=== PATIENT | male | born 1965 | race Caucasian/White ===

== ENCOUNTER 2021-01-07 12:30 | Emergency (ER) | payer OTHER ==
[~2021-01-07] VITALS: Ht 182.9 cm; Wt 86.2 kg
[2021-01-07 12:34] VITALS: BP 156/100
--- NOTE | 2021-01-07 12:36 | NUR ---
PATIENT ANNA [id number] From Home "Hx Chronic Back Pain worse yesterday now cant get up". PATIENT ALERT AND ORIENTED X4. NO RESPIRATORY DISTRESS NOTED. PATIENT RESPIRATIONS EVEN AND UNLABORED. AWAITING MD MENDIETA
[2021-01-07] MEDS ORDERED: KETOROLAC TROMETHAMINE INJ 30 MG/ML VIAL ONE (12:43)
[2021-01-07] MEDS: KETOROLAC TROMETHAMINE INJ 60 MG/2 ML VIAL IM ONE (12:48)
[2021-01-07] MEDS ORDERED: HYDR-3976 GT (13:06)
[2021-01-07] MEDS ORDERED: IBUP-1957 PO (13:06)
[2021-01-07] MEDS ORDERED: CYCLOBENZAPRINE 10 MG TABLET ONE (13:33)
[2021-01-07] MEDS: CYCLOBENZAPRINE 10 MG TABLET PO ONE (13:36)
--- NOTE | 2021-01-07 13:36 | NUR ---
Patient discharged to home in stable condition. Written and verbal after care instructions given. Patient verbalizes understanding of instruction.
== END 2021-01-07 13:37 | disposition home or self-care (01) ==
LOC: ER 12:35
DX: M54.9 Dorsalgia, unspecified (principal); G89.29 Other chronic pain; I10 Essential (primary) hypertension; J45.909 Unspecified asthma, uncomplicated
CPT/HCPCS: 96372; 99283; J1885